=== PATIENT | female | born 1955 | race American Indian/Alaskan Native ===

== ENCOUNTER 2017-04-27 08:16 | Day surgery (SDC) | payer MEDICARE ==
[2017-04-27 09:31] VITALS: BMI 52.1
--- NOTE | 2017-04-27 10:40 | CP.SDSHP ---
Same Day Surgery H & P - History Proposed Procedure: COLONSCOPY Pre-Op Diagnosis: SEE NOTES - Previous Medical/Surgical History Cardiac: Hypertension Pulmonary: Asthma Endocrine/Metabolic: Diabetes Neuro: Backaches, Other - Allergies Allergies: Allergies cefaclor Allergy (Verified 04/27/17 09:30) RASH ciprofloxacin Allergy (Verified 04/27/17 09:30) RASH clavulanic acid [From Timentin] Allergy (Verified 04/27/17 09:30) RASH metronidazole [From Flagyl] Allergy (Verified 04/27/17 09:30) RASH sulfamethoxazole [From Bactrim] Allergy (Verified 04/27/17 09:30) RASH ticarcillin [From Timentin] Allergy (Verified 04/27/17 09:30) RASH trimethoprim [From Bactrim] Allergy (Verified 04/27/17 09:30) RASH - Physical Exam General Appearance: N Vital Signs: Vital Signs 04/27/17 09:10 Temperature 96.0 F L Pulse Rate 91 H Respiratory 20 Rate Blood Pressure 197/93 H O2 Sat by Pulse 98 Oximetry Mental Status: Alert & Oriented x3 Neuro: WNL Heart: Other Lungs: Other GI: WNL - {Optional Preform as Required} Breast: WNL Abdomen: Other Rectal: Other Integument: WNL : WNL Ortho: Other ENT: WNL - Impression Pt. Evaluated Today:Candidate for Anesthesia & Procedure: Yes - Date & Time Time: 10:40 Short Stay Discharge - Short Stay Discharge Admitting Diagnosis/Reason for Visit: COLON SCREENING Disposition: HOME/ ROUTINE
[2017-04-27] MEDS ORDERED: Belladonna-Phenobarbital PO ONE (11:35)
[2017-04-27 12:49] VITALS: TEMP 97.2; O2SAT 100
[2017-04-27 12:52] VITALS: BP 165/89; PULSE 81; RESP 18
== END 2017-04-27 13:30 | disposition home or self-care (01) ==
LOC: C.ENDO 08:16
PROVIDERS: ATTEND Specialist
DX: K57.90 Diverticulosis of intestine, part unspecified, without perforation or abscess without bleeding (principal); K64.8 Other hemorrhoids; K64.4 Residual hemorrhoidal skin tags
CPT/HCPCS: 45380; 82948; 88305; J2405

== ENCOUNTER 2017-05-04 07:58 | Day surgery (SDC) | payer MEDICARE ==
[2017-05-04 08:39] VITALS: O2SAT 100
[2017-05-04] MEDS ORDERED: Propofol 10 mg/ml Inj (20 ML) ONE (08:55)
--- NOTE | 2017-05-04 08:58 | CP.SDSHP ---
Same Day Surgery H & P - History Proposed Procedure: egd Pre-Op Diagnosis: SEE NOTES - Previous Medical/Surgical History Cardiac: Hypertension Pulmonary: Asthma Endocrine/Metabolic: Diabetes, Other Neuro: Backaches Misc: Other Pain: 4.Moderate Pain - Allergies Allergies: Allergies cefaclor Allergy (Verified 04/27/17 09:30) RASH ciprofloxacin Allergy (Verified 04/27/17 09:30) RASH clavulanic acid [From Timentin] Allergy (Verified 04/27/17 09:30) RASH metronidazole [From Flagyl] Allergy (Verified 04/27/17 09:30) RASH sulfamethoxazole [From Bactrim] Allergy (Verified 04/27/17 09:30) RASH ticarcillin [From Timentin] Allergy (Verified 04/27/17 09:30) RASH trimethoprim [From Bactrim] Allergy (Verified 04/27/17 09:30) RASH - Current Medications Current Medications: N - Physical Exam General Appearance: N Vital Signs: Vital Signs 05/04/17 08:31 Temperature 97.2 F L Pulse Rate 92 H Respiratory 18 Rate Blood Pressure 153/70 H O2 Sat by Pulse 100 Oximetry Mental Status: Alert & Oriented x3 Neuro: WNL Heart: Other Lungs: Other GI: WNL - {Optional Preform as Required} Breast: WNL Abdomen: Other Rectal: Other Integument: WNL : WNL Ortho: Other ENT: WNL - Impression Pt. Evaluated Today:Candidate for Anesthesia & Procedure: Yes - Date & Time Time: 08:58 Short Stay Discharge - Short Stay Discharge Admitting Diagnosis/Reason for Visit: DYSPEPSIA Disposition: HOME/ ROUTINE
[2017-05-04 10:34] VITALS: TEMP 97.8
[2017-05-04 11:06] VITALS: BP 162/70; PULSE 81; RESP 13
== END 2017-05-04 10:30 | disposition home or self-care (01) ==
LOC: C.ENDO 07:58
PROVIDERS: ATTEND Specialist
DX: K30 Functional dyspepsia (principal); R10.13 Epigastric pain; K44.9 Diaphragmatic hernia without obstruction or gangrene; K20.9 Esophagitis, unspecified
CPT/HCPCS: 43239; 82948; 88305; J2704